=== PATIENT | male | born 1985 | race Caucasian/White ===

== ENCOUNTER 2017-02-25 16:50 | Emergency (ER) | payer SELFPAY ==
[~2017-02-25] VITALS: Ht 172.7 cm; Wt 70.0 kg
[~2017-02-25 16:50] MED LIST: BACTRIM DS1 TAB OR; BACTRIM DS1 TAB PO; BACTROBAN2 % EX; CEPHALEXIN500 MG OR; CEPHALEXIN500 MG PO; LORTAB 1010 MG PO; LORTAB 5 OR; NO MEDS
[2017-02-25] MEDS ORDERED: AMOX/K CLAV875 M1 PO ×2 (17:51→18:12)
[2017-02-25 18:00] VITALS: BP 130/80
== END 2017-02-25 18:12 | disposition home or self-care (01) | DRG 156 ==
LOC: ED 16:50
DX: H60.502 Unspecified acute noninfective otitis externa, left ear (principal); H92.02 Otalgia, left ear

== ENCOUNTER 2017-06-18 07:56 | Emergency (ER) | payer SELFPAY ==
[~2017-06-18] VITALS: Ht 172.7 cm; Wt 70.0 kg
[~2017-06-18 07:56] MED LIST changes: +AMOX/K CLAV875 M1 PO
[2017-06-18] MEDS ORDERED: CIPROFLOXACN750 MG PO (08:24)
== END 2017-06-18 08:40 | disposition home or self-care (01) | DRG 153 ==
LOC: ED 07:56
DX: H66.92 Otitis media, unspecified, left ear (principal); H92.12 Otorrhea, left ear; H60.502 Unspecified acute noninfective otitis externa, left ear